=== PATIENT | female | born 1975 | race Caucasian/White ===

== ENCOUNTER 2018-12-02 10:59 | Emergency (ER) | payer SELFPAY ==
[~2018-12-02] VITALS: Ht 167.6 cm; Wt 76.0 kg
[2018-12-02] MEDS ORDERED: VISCOUS LIDOCAINE 2% 15 ML UDC PO ONE (11:30)
[2018-12-02] MEDS ORDERED: MAGNESIUM/ALUMINUM HYDROXIDE/SIMETHICONE 30ML UDC PO ONE (11:30)
[2018-12-02] MEDS ORDERED: ASPIRIN 81MG TABLET PO ONE (11:30)
[2018-12-02 11:59] LABS: EOSINOPHILS % 3.7 % (0.0-5.0); HEMATOCRIT. 40.9 % (36.0-48.0); HEMOGLOBIN. 13.9 g/dL (12.0-16.0); LYMPHOCYTES % 38.4 % (20.0-50.0); MEAN CORPUSCULAR HEMOGLOBIN 30.7 pg (28.0-32.0); MEAN CORPUSCULAR VOLUME 90.4 fL (81.0-99.0); MEAN PLATELET VOLUME 7.5 fl (7.4-10.4); NEUTROPHILS % 48.9 % (40.0-76.0); PLATELET 286 x1000/uL (130-400); RED BLOOD CELL COUNT 4.52 mill/uL (4.2-5.4); RED CELL DISTRIBUTION WIDTH 12.8 % (11.6-14.6)
[2018-12-02 12:01] LABS: CHLORIDE 113 mEq/L (98-107)
[2018-12-02 13:30] VITALS: BP 106/79
== END 2018-12-02 15:23 | disposition home or self-care (01) ==
LOC: ER 11:26
DX: K21.9 Gastro-esophageal reflux disease without esophagitis (principal); Z98.890 Other specified postprocedural states
CPT/HCPCS: 36415; 71045; 76705; 83880; 84484; 93005; 99284